=== PATIENT | male | born 1980 | race African-American/Black ===

== ENCOUNTER 2018-07-03 22:44 | Emergency (ER) | payer SELFPAY ==
[2018-07-03] MEDS ORDERED: Proparacaine 0.5% Opth 15 ML BOT ONE (22:55)
[2018-07-03] MEDS ORDERED: Fluorescein Opthalmic Strip ONE (22:55)
== END 2018-07-04 00:12 | disposition home or self-care (01) ==
LOC: ERS 22:44
DX: H16.133 Photokeratitis, bilateral (principal); F17.210 Nicotine dependence, cigarettes, uncomplicated; W89.8XXA Exposure to other man-made visible and ultraviolet light, initial encounter
CPT/HCPCS: 99283

== ENCOUNTER 2019-03-30 14:12 | Emergency (ER) | payer SELFPAY ==
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
== END 2019-03-30 16:45 | disposition home or self-care (01) ==
LOC: ERS 14:12
DX: S16.1XXA Strain of muscle, fascia and tendon at neck level, initial encounter (principal); S39.012A Strain of muscle, fascia and tendon of lower back, initial encounter; V43.52XA Car driver injured in collision with other type car in traffic accident, initial encounter
CPT/HCPCS: 72125; 72128; 72131; 72170